=== PATIENT | female | born 1985 | race Caucasian/White ===

== ENCOUNTER 2016-09-10 17:32 | Emergency (ER) | payer OTHER ==
--- NOTE | 2016-09-10 18:12 | ED Physician Documentation ---
PD HPI CHEST PAIN - Stated complaint Stated Complaint: CHEST PAIN, SOA - Chief complaint Chief Complaint: Cardiac - History obtained from History obtained from: Patient, Family - History of Present Illness Timing - onset: How many hours ago (2) Timing - onset during: Rest Timing - duration: Hours (2) Timing - details: Gradual onset, Now resolved Pain level max: 6 Pain level now: 4 Quality: Pressure, Tightness, Pain Location: Other (non-radiating) Radiation: No: Jaw, Neck, Back, Abdominal, Left upper extremity, Right upper extremity Improved by: Nothing Worsened by: No: Exertion, Inspiration, Eating, Movement, Palpation Associated symptoms: Feeling faint / dizzy. No: Shortness of air, Diaphoresis, Nausea, Vomiting, General Weakness, Palpitations Similar symptoms before: Has not had sx before Recently seen: Not recently seen - Additional information Additional information: Patient is a 30-year-old female who was recently diagnosed with a pheochromocytoma and started on doxazosin yesterday. Started having high blood pressure and chest pain again today. Came in for evaluation. Review of Systems Ten Systems: 10 systems reviewed and negative Constitutional: denies: Fever, Chills Cardiac: denies: Palpitations, Pedal edema, Calf pain Respiratory: denies: Cough, Wheezing : denies: Dysuria Skin: denies: Rash Musculoskeletal: denies: Neck pain, Back pain Neurologic: denies: Headache PD PAST MEDICAL HISTORY - Past Medical History Past Medical History: Yes Other Past Medical History: Pheochromocytoma - Past Surgical History Past Surgical History: Yes - Present Medications Home Medications: Ambulatory Orders Medication Instructions Recorded Confirmed Doxazosin [Cardura] 4 mg PO DAILY 09/10/16 09/10/16 - Allergies Allergies/Adverse Reactions: Allergies Allergy/AdvReac Type Severity Reaction Status Date / Time No Known Drug Allergies Allergy Verified 09/10/16 17:39 - Social History Does the pt smoke?: No Smoking Status: Never smoker Does the pt drink ETOH?: No Does the pt have substance abuse?: No PD ED PE NORMAL - Vitals Vital signs reviewed: Yes - General General: Alert and oriented X 3, No acute distress, Well developed/nourished - HEENT HEENT: PERRL, Moist mucous membranes - Neck Neck: Supple, no meningeal sign - Cardiac Cardiac: RRR, Strong equal pulses - Respiratory Respiratory: No respiratory distress, Clear bilaterally - Abdomen Abdomen: Soft, Non tender, Non distended - Derm Derm: Warm and dry, No rash - Extremities Extremities: No edema, No calf tenderness / cord - Neuro Neuro: Alert and oriented X 3, No motor deficit, No sensory deficit - Psych Psych: Normal mood, Normal affect Results - Vitals Vitals: Vital Signs - 24 hr 09/10/16 09/10/16 09/10/16 17:36 18:28 19:38 Temperature 36.3 C L Heart Rate 95 84 96 Respiratory 20 14 18 Rate Blood Pressure 201/127 H 175/110 H 199/132 H Blood Pressure [Left] Blood Pressure [Right] O2 Saturation 98 98 97 09/10/16 09/10/16 09/10/16 20:17 20:18 20:48 Temperature Heart Rate 86 93 Respiratory 18 18 Rate Blood Pressure 182/130 H 172/112 H Blood Pressure 182/130 H [Left] Blood Pressure 172/124 H [Right] O2 Saturation 98 97 09/10/16 09/10/16 09/10/16 21:32 21:56 22:46 Temperature Heart Rate 123 H 123 H 112 H Respiratory 18 18 18 Rate Blood Pressure 160/100 H 148/102 H Blood Pressure [Left] Blood Pressure [Right] O2 Saturation 98 98 97 09/10/16 09/10/16 22:55 23:20 Temperature Heart Rate 98 Respiratory 14 Rate Blood Pressure 160/110 H 160/110 H Blood Pressure [Left] Blood Pressure [Right] O2 Saturation 98 Oxygen O2 Source Room air - EKG (time done) 1738 Rate: Rate (enter#) (90) Rhythm: NSR [place]: Normal Intervals: Normal ME QRS: Normal Ischemia: Non specific changes Computer interpretation: Agree with computer - Labs Labs: Laboratory Tests 09/10/16 09/10/16 09/10/16 18:10 18:10 18:10 WBC 11.0 H RBC 4.66 Hgb 15.5 Hct 44.8 MCV 96.2 MCH 33.2 H MCHC 34.6 RDW 13.7 Plt Count 164 MPV 8.7 Neut # 9.6 H Lymph # 0.6 L Starke # 0.7 Eos # 0.0 Baso # 0.0 Absolute Nucleated RBC 0.00 Nucleated RBCs 0.0 Sodium 137 Potassium 3.5 Chloride 100 L Carbon Dioxide 27 Anion Gap 10.0 BUN 19 Creatinine 0.9 Estimated GFR (MDRD) 75 L Glucose 111 H Calcium 9.4 Total Bilirubin 0.6 AST 112 H ALT 103 H Alkaline Phosphatase 61 Troponin I 0.15 Total Protein 7.3 Albumin 4.4 Globulin 2.9 Albumin/Globulin Ratio 1.5 Lipase 21 L Serum HCG, Qual 09/10/16 09/10/16 18:10 20:20 WBC RBC Hgb Hct MCV MCH MCHC RDW Plt Count MPV Neut # Lymph # Starke # Eos # Baso # Absolute Nucleated RBC Nucleated RBCs Sodium Potassium Chloride Carbon Dioxide Anion Gap BUN Creatinine Estimated GFR (MDRD) Glucose Calcium Total Bilirubin AST ALT Alkaline Phosphatase Troponin I 0.15 Total Protein Albumin Globulin Albumin/Globulin Ratio Lipase Serum HCG, Qual NEGATIVE - Rads (name of study) CT angio chest, abd, pelvis Radiology: Prelim report reviewed, EMP read contemporaneously, See rad report ( Normal chest, abdomen and pelvis CT angiogram. Indeterminant 14.4 cm hypervascular right hepatic lobe mass. Dedicated multiphase liver CT or MRI recommended for further characterization) PD MEDICAL DECISION MAKING - ED course Complexity details: reviewed results, re-evaluated patient, considered differential, d/w patient, d/w family ED course: Hypertensive crisis. No IV alpha 1 blockers available IV here. Given 4mg cardura PO. Blood pressure decreased. 1899 D/w [facility] cardiology (Dr. Love) who requests a CT of the aorta to r/o dissection prior to transfer. 2244 - Dr. Love called back and discussed CT results and flat troponin levels. Will admit to [facility]. Dr. Love reviewed the EKG and states not changed from prior. 2099 - Dr. Cuadra () graciously accepts in transfer. Asymptomatic in the ED. No recurrent chest pain. Transferred to [facility]. This document was made in part using voice recognition software. While efforts are made to proofread this document, sound alike and grammatical errors may occur. Departure - Departure Disposition: 02 Transfer Acute Care Hosp Clinical Impression: Hypertensive urgency Pheochromocytoma Qualifiers: Laterality: right Qualified Code(s): D35.01 - Benign neoplasm of right adrenal gland Condition: Stable Discharge Date/Time: 09/10/16 23:35
--- NOTE | 2016-09-10 18:16 | XRAY Preliminary Report ---
Exam: XR Chest 1 View IMPRESSION: Normal single view chest. [facility] SITE ID: [id number]
[2016-09-10 18:18] LABS: BASOPHILS % (AUTO) 0.4 %; EOSINOPHILS % (AUTO) 0.4 %; HCT - HEMATOCRIT 44.8 % (37.0-47.0); HGB - HEMOGLOBIN 15.5 g/dL (12.0-16.0); LYMPHOCYTES # (AUTO) 0.6 10^3/uL (1.5-3.5); LYMPHOCYTES % (AUTO) 5.3 %; MEAN CORPUSCULAR HEMOGLOBIN 33.2 pg (27.0-31.0); MEAN CORPUSCULAR HGB CONC 34.6 g/dL (32.0-36.0); MEAN CORPUSCULAR VOLUME 96.2 fL (81.0-99.0); MEAN PLATELET VOLUME 8.7 fL (7.9-10.8); MONOCYTES # (AUTO) 0.7 10^3/uL (0.0-1.0); MONOCYTES % (AUTO) 6.1 %; NEUTROPHILS # (AUTO) 9.6 10^3/uL (1.5-6.6); NEUTROPHILS % (AUTO) 87.8 %; RED BLOOD COUNT 4.66 10^6/uL (4.20-5.40); RED CELL DISTRIBUTION WIDTH 13.7 % (12.0-15.0)
--- NOTE | 2016-09-10 18:19 | XRAY Report ---
EXAM: CHEST RADIOGRAPHY EXAM DATE: 09/10/2016 06:09 PM. CLINICAL HISTORY: Chest pain. COMPARISON: None. TECHNIQUE: 1 view. FINDINGS: Lungs/Pleura: No focal opacities evident. No pleural effusion. No pneumothorax. Mediastinum: Within exam limitations, cardiomediastinal contour is normal. Other: None. IMPRESSION: Normal single view chest. [facility] Referring Provider Line: [phone] SITE ID: [id number]
[2016-09-10 18:30] LABS: ALBUMIN/GLOBULIN RATIO 1.5 (1.0-2.2); BILIRUBIN,TOTAL 0.6 mg/dL (0.2-1.0); CALCIUM 9.4 mg/dL (8.5-10.3); CREATININE 0.9 mg/dL (0.4-1.0); POTASSIUM 3.5 mmol/L (3.5-5.0); TOTAL PROTEIN 7.3 g/dL (6.7-8.2)
[2016-09-10] MEDS ORDERED: DOXAZOSIN 1 MG TABLET PO STA (19:07)
[2016-09-10] MEDS ORDERED: IOPAMIDOL-300 100 ML VIAL IVP ONE (20:03)
[2016-09-10] MEDS ORDERED: ASPIRIN CHEW 81 MG TABLET PO STA (20:23)
[2016-09-10] MEDS ORDERED: ASPIRIN CHEW 81 MG TABLET ONE (20:24)
--- NOTE | 2016-09-10 20:33 | CT Preliminary Report ---
Exam: CT Abdomen/Pelvis Angio IMPRESSION: 1. Normal chest, abdomen and pelvis CT angiogram. 2. Indeterminate, 14.4 cm hypervascular right hepatic lobe mass. Dedicated multiphase liver CT or MRI recommended for further characterization. [facility] SITE ID: [id number]
--- NOTE | 2016-09-10 20:35 | CT Preliminary Report ---
Exam: CT Chest Angio (AORTA) Please refer to combined CTA chest abdomen pelvis report SITE ID: [id number]
--- NOTE | 2016-09-10 20:36 | CT Report ---
<H1.> EXAM: CT ANGIOGRAM CHEST, ABDOMEN AND PELVIS EXAM DATE: 09/10/2016 08:07 PM. CLINICAL HISTORY: Chest pain, hypertension. COMPARISONS: None. TECHNIQUE: Routine axial helical CT angiographic imaging was performed through the chest, abdomen, and pelvis. I V Contrast: 100 mL Isovue-300. Reconstructions: Coronal, sagittal, and 3D MIP reconstructions of the aorta. In accordance with CT protocol optimization, one or more of the following dose reduction techniques w ere utilized for this exam: automated exposure control, adjustment of mA and/or KV based on patient s ize, or use of iterative reconstructive technique. FINDINGS: Vascular Structures: Normal. No aneurysm, dissection, or significant atherosclerotic disease of the t horacic aorta, abdominal aorta, or iliac arteries. The visualized pulmonary, mesenteric, and solid or yandy vascular structures are also within normal limits. Lungs/Pleura: No consolidation, nodules, or edema. No effusions or pneumothorax. Mediastinum: Normal. No cardiac enlargement or adenopathy. Abdominal Organs: There is a 14.4 x 12.1 x 12.3 cm heterogeneous mass in the right hepatic lobe. The mass demonstrates fairly extensive vascularity. The pancreas, spleen and left adrenal gland are unrem arkable. The right adrenal gland is continuous with the mass. Slightly hypertrophic right kidney whic h is compressed by the liver mass. No hydronephrosis. Peritoneal Cavity: Normal. No free fluid, free air, or acute inflammatory process. Pelvic Organs: Normal. The bladder and visualized pelvic organs are within normal limits. Bones: No significant abnormality. Other: None. IMPRESSION: 1. Normal chest, abdomen and pelvis CT angiogram. 2. Indeterminate, 14.4 cm hypervascular right hepatic lobe mass. Dedicated multiphase liver CT or MRI recommended for further characterization. [facility] Referring Provider Line: [phone] SITE ID: [id number]
--- NOTE | 2016-09-10 20:50 | CT Report ---
<H1.> EXAM: CT ANGIOGRAM CHEST, ABDOMEN AND PELVIS EXAM DATE: 09/10/2016 08:07 p.m. CLINICAL HISTORY: Chest pain, hypertension. COMPARISONS: None. TECHNIQUE: Routine axial helical CT angiographic imaging was performed through the chest, abdomen, and pelvis. I V Contrast: 100 mL Isovue-300. Reconstructions: Coronal, sagittal, and 3D MIP reconstructions of the aorta. In accordance with CT protocol optimization, one or more of the following dose reduction techniques w ere utilized for this exam: automated exposure control, adjustment of mA and/or KV based on patient s ize, or use of iterative reconstructive technique. FINDINGS: Vascular Structures: Normal. No aneurysm, dissection, or significant atherosclerotic disease of the t horacic aorta, abdominal aorta, or iliac arteries. The visualized pulmonary, mesenteric, and solid or yandy vascular structures are also within normal limits. Lungs/Pleura: No consolidation, nodules, or edema. No effusions or pneumothorax. Mediastinum: Normal. No cardiac enlargement or adenopathy. Abdominal Organs: There is a 14.4 x 12.1 x 12.3 cm heterogeneous mass in the right hepatic lobe. The mass demonstrates fairly extensive vascularity. The pancreas, spleen and left adrenal gland are unrem arkable. The right adrenal gland is continuous with the mass. Slightly hypertrophic right kidney whic h is compressed by the liver mass. No hydronephrosis. Peritoneal Cavity: Normal. No free fluid, free air, or acute inflammatory process. Pelvic Organs: Normal. The bladder and visualized pelvic organs are within normal limits. Bones: No significant abnormality. Other: None. IMPRESSION: 1. Normal chest, abdomen and pelvis CT angiogram. 2. Indeterminate, 14.4 cm hypervascular right hepatic lobe mass. Dedicated multiphase liver CT or MRI recommended for further characterization. [facility] Referring Provider Line: [phone] SITE ID: [id number]
[2016-09-10 22:55] VITALS: BP 160/110
[2016-09-10] MEDS ORDERED: ACETAMINOPHEN 325 MG TABLET PO STA (23:09)
[2016-09-10] MEDS ORDERED: ACETAMINOPHEN 325 MG TABLET PO ONE (23:11)
== END 2016-09-10 23:35 | disposition short-term general hospital (02) ==
LOC: ED 17:32
DX: I16.0 Hypertensive urgency (principal); D35.00 Benign neoplasm of unspecified adrenal gland
CPT/HCPCS: 36415; 71010; 71275; 74174; 80053; 83690; 84484; 84703; 85025; 93005; 99285; A9270; Q9967; 81025